=== PATIENT | female | born 1995 | race Caucasian/White ===

== ENCOUNTER 2017-11-17 10:42 | Inpatient (IN) | payer OTHER ==
[~2017-11-17] VITALS: Ht 157.5 cm; Wt 69.6 kg
[2017-11-17 10:56] VITALS: BP 136/91
--- NOTE | 2017-11-17 11:01 | NUR ---
AFTER PROVIDING URINE SAMPLE, PT AMBULATES TO BED 11, REPORT GIVEN TO RADHA CISNEROS
--- NOTE | 2017-11-17 11:05 | NUR ---
HEAD ACHE, LT FACE NUMBNESS X 4 DAYS, LOSS OF WORDS. DENIES N/V/D; SKIN IS PINK/WARM/DRY; AWAKE, ALERT. LUNGS CLEAR BL; HR EVEN AND REGULAR. PAIN OF 9/10 AT THIS TIME; VSS; PATIENT POSITIONED FOR COMFORT; HOB ELEVATED; BEDRAILS UP X2; BED DOWN. ER MD MADE AWARE OF PT STATUS.PT'S SISTER AT BEDSIDE.
[2017-11-17] MEDS ORDERED: MORPHINE SULFATE 4 MG/ML SYR IVP ONE (11:15)
[2017-11-17] MEDS ORDERED: PROCHLORPERAZINE 10 MG/2 ML VIAL IVP ONE (11:15)
[2017-11-17 11:27] LABS: BASOPHILS # (AUTO) 0.1 K/uL (0.00-0.22); BASOPHILS % (AUTO) 0.8 % (0.0-2.0); EOSINOPHILS # (AUTO) 0.2 K/uL (0-0.4); HEMOGLOBIN 12.3 g/dL (12.0-16.0); LYMPHOCYTES # (AUTO) 2.8 K/uL (2.5-16.5); LYMPHOCYTES % (AUTO) 31.4 % (20.5-51.1); MEAN CORPUSCULAR HEMOGLOBIN 30 pg (27-31); MEAN CORPUSCULAR HGB CONC 33 g/dL (33-37); MEAN CORPUSCULAR VOLUME 90.3 fL (80-94); MONOCYTES # (AUTO) 0.9 K/uL (0.8-1.0); MONOCYTES % (AUTO) 9.6 % (1.7-9.3); NEUTROPHILS % (AUTO) 56.2 % (42.2-75.2); PLATELET COUNT (AUTO) 268 K/uL (140-450); WHITE BLOOD COUNT (AUTO) 8.9 K/uL (4.8-10.8)
[2017-11-17 11:38] LABS: ANION GAP 0.6 (8-16); CARBON DIOXIDE 26.9 mmol/L (21-32); CREATININE 0.7 mg/dL (0.6-1.3); POTASSIUM 3.5 mmol/L (3.5-5.1); TOTAL BILIRUBIN 1.3 mg/dL (0.0-1.0)
--- NOTE | 2017-11-17 11:58 | NUR ---
PT RETURNED FROM CT
[2017-11-17] MEDS ORDERED: LORazepam 2 MG/ML VIAL IVP PRN (13:00)
[2017-11-17] MEDS ORDERED: ONDANSETRON 4 MG/2 ML VIAL IVP PRN (13:00)
[2017-11-17] MEDS ORDERED: HYDROcodone/APAP 5/325 MG 1 TAB TAB PO PRN ×2 (13:00)
[2017-11-17] MEDS ORDERED: ACETAMINOPHEN 325 MG TAB PO PRN (13:00)
[2017-11-17] MEDS ORDERED: NACL 0.9% 1,000 ML IV ONE (14:10)
[2017-11-17 14:34] LABS: APPEARANCE,URINE CLEAR (CLEAR); BILIRUBIN,URINE NEGATIVE (NEGATIVE); BLOOD, URINE NEGATIVE (NEGATIVE); COLOR,URINE YELLOW (YELLOW); LEUKOCYTE ESTERASE ,URINE TRACE (NEGATIVE); NITRITE, URINE NEGATIVE (NEGATIVE); UGLUCOSE NEGATIVE (NEGATIVE)
--- NOTE | 2017-11-17 14:42 | NUR ---
PER DR. UDTTA, DO NOT INSERT FLEY CATH AND GIVE 0.9 NS AT 50 MLS/HR YET, WAIT FOR LAB REPORT, THEN CALL HIM.WILL CARRY OUT.
[2017-11-17 14:43] LABS: ANION GAP 13.3 (8-16); CARBON DIOXIDE 25.4 mmol/L (21-32); CREATININE 0.7 mg/dL (0.6-1.3); POTASSIUM 3.7 mmol/L (3.5-5.1)
[2017-11-17 14:46] LABS: BARBITURATE, URINE NEG. ng/ml (NEG <=200); BENZODIAZEPINE, URINE NEG. ng/mL (NEG <=200); CANNABINOID, URINE NEG. ng/mL (NEG <=50); COCAINE, URINE NEG. ng/mL (NEG <=300); OPIATE, URINE NEG. ng/mL (NEG <=2000); PHENCYCLIDINE SCREEN,URINE NEG. ng/mL (NEG <=25)
[2017-11-17 14:55] LABS: THYROID STIMULATING HORMONE 3.41 uIU/mL (0.34-3.74)
[2017-11-17 15:02] LABS: RBC,URINE 0-5 (RARE) /HPF (0-5); WBC,URINE 0-5 (RARE) /HPF (0-5)
[2017-11-17 15:40] VITALS: BP 127/69
--- NOTE | 2017-11-17 15:40 | NUR ---
ADMITTED FROM ED THIS 22 YR OLD [place] FEMALE PER ACE WITH CC OF HEADACHES AND NUMBNESS OF LEFT SIDE OF FACE WHICH STARTED 4 DAYS AGO. DENIES ANY DISCOMFORTS AT THIS TIME. HL ON LEFT HAND. SITE CLEAR. CHEERFUL AND COOPERATIVE. DENIES ANY DISCOMFORTS AT THIS TIME. SISTER AT BEDSIDE.
--- NOTE | 2017-11-17 15:45 | NUR ---
TRANSFERRED PT TO ICU BED 4, REPORT GIVEN TO MEGAN. PT AWAKE, ALERT, AND ORIENTED. ON ROOM AIR, NO S/S OF RESPIRATORY DISTRESS NOTED. PT'S SISTER WITH PT.
[2017-11-17 17:00] VITALS: BP 119/68
[2017-11-17 17:07] LABS: ANION GAP 13.3 (8-16); CARBON DIOXIDE 25.5 mmol/L (21-32); POTASSIUM 3.8 mmol/L (3.5-5.1)
[2017-11-17 17:08] LABS: CREATININE 0.6 mg/dL (0.6-1.3)
--- NOTE | 2017-11-17 17:45 | NUR ---
DR. DUTTA NOTIFIED OF BMP RESULTS. AWARE THAT UA SODIUM AND POTASSIUM RESULTS NOT AVAILABLE YET.
--- NOTE | 2017-11-17 18:30 | NUR ---
USED THE BEDSIDE COMMODE. GAIT STEADY. URINE PALE YELLOW. TOLERATED ACTIVITY WELL.
--- NOTE | 2017-11-17 18:45 | NUR ---
MOTHER AT BEDSIDE. UPDATED ON PT'S CONDITION. QUESTIONS ANSWERED.
[2017-11-17 19:02] LABS: CARBON DIOXIDE 27.6 mmol/L (21-32); CREATININE 0.7 mg/dL (0.6-1.3); POTASSIUM 3.6 mmol/L (3.5-5.1)
--- NOTE | 2017-11-17 19:16 | NUR ---
REPORT GIVEN TO PERNELL GARCIA.
--- NOTE | 2017-11-17 19:20 | NUR ---
RECEIVED REPORT FROM DAY NURSE, NO ACUTE DISTRESS NOTED. WILL CONTINUE TO OBSERVE.
[2017-11-17] MEDS ORDERED: IBUP-2218 PO (19:52)
--- NOTE | 2017-11-17 19:54 | NUR ---
NOTIFIED DR. AKBAR OF PAST LAB RESULTS NA LEVELS. MD STATED OK TO D/C UPCOMING DRAWS, KEEP CMP DRAW TOMORROW IN AM. INFORMED MD OF EKG CHANGE OF INVERTED P WAVES, 12 LEAD EKG ORDERED. PT DENIES PAIN @ THIS TIME AND IS ASYMPTOMATIC, WILL CONTINUE TO OBSERVE.
--- NOTE | 2017-11-17 19:57 | NUR ---
PT AWAKE ALERT ORIENTED X 4 FOLLOWING COMMANDS SITTING UP IN BED, +3 BRISK PERRLA, STRONG UPPER AND LOWER EXTREMITIES. PT DENIES SEIZURES, MUSCLES TWITCHING, NUMBNESS. SINUS RHYTHM 60S NOTED WITH INVERTED P WAVES @ TIMES, NO EDEMA NOTED. LUNGS CLEAR TO AUSCULTATION. ABD SOFT NON DISTENDED + ACTIVE BOWEL SOUNDS, PT VOIDING IN BEDSIDE COMMODE, 24 HOUR URINE COLLECTION @ BEDSIDE. SKIN INTACT, PERIPHERAL IV TO L FOREARM HEPLOCK. PT DENIES PAIN @ THIS TIME. NO OTHER S/S OF ACUTE DISTRESS NOTED. WILL CONTINUE TO OBSERVE.
--- NOTE | 2017-11-17 20:05 | NUR ---
DR VIRGEN @ BEDSIDE.
--- NOTE | 2017-11-17 20:13 | NUR ---
NOTIFIED DR VIRGEN OF PT INVERTED P WAVES, PT ASYMPTOMATIC, 12 LEAD EKG ORDERED, D/C PENDING.
[2017-11-17 21:04] VITALS: BP 122/70
--- NOTE | 2017-11-17 22:10 | NUR ---
PAGED DR AKBAR INFORMED MD OF NSR EKG, PT ASYMPTOMATIC. AWARE, OK TO DISCHARGE. WILL CARRY OUT ORDERS.
--- NOTE | 2017-11-17 22:25 | NUR ---
DISCHARGE INSTRUCTIONS GIVEN TO PT, MOTHER @ BEDSIDE. PT VERBALIZED UNDERSTANDING, ALL BELONGINGS RETAINED BY PATIENT. PERIPHERAL IV D/C'D HEMOSTASIS ACHIEVED, NO OTHER S/S OF ACUTE DISTRESS NOTED, HOSPITAL BAND RETAINED. WILL WHEEL OUT VIA WHEELCHAIR, FAMILY TO TRANSPORT HOME.
--- NOTE | 2017-11-18 07:45 | NUR ---
RETRO ER REPORT, H&P AND CONSULT FAXED TO [facility] [phone] PHONE MEHDI [phone].
[2017-11-19 07:18] LABS: OSMOLALITY,URINE 81 mOsmol/kg (.)
== END 2017-11-17 22:25 | disposition home or self-care (01) | DRG 54 ==
LOC: MED 10:42 → MIC 12:58
PROVIDERS: ADMIT Hospitalist; ATTEND Hospitalist
DX: G43.909 Migraine, unspecified, not intractable, without status migrainosus (principal); E87.1 Hypo-osmolality and hyponatremia; T39.315A Adverse effect of propionic acid derivatives, initial encounter; R63.1 Polydipsia; Z88.1 Allergy status to other antibiotic agents; Z82.49 Family history of ischemic heart disease and other diseases of the circulatory system; Y92.89 Other specified places as the place of occurrence of the external cause
CPT/HCPCS: 36415; 70450; 80048; 80053; 80305; 81001; 83930; 83935; 84133; 84300; 84443; 85025; 87081; 93005; 96374; 96375; 99285; J0780; J2270

== ENCOUNTER 2020-10-30 07:44 | Emergency (ER) | payer OTHER ==
[~2020-10-30] VITALS: Ht 160 cm; Wt 64.4 kg
[2020-10-30 07:45] VITALS: BP 120/78
[2020-10-30] MEDS ORDERED: KETOROLAC 30 MG/ML VIAL IM ONE (08:05)
[2020-10-30 08:27] LABS: BASOPHILS # (AUTO) 0.1 K/uL (0.00-0.22); BASOPHILS % (AUTO) 1.1 % (0.0-2.0); EOSINOPHILS # (AUTO) 0.1 K/uL (0-0.4); EOSINOPHILS % (AUTO) 1.6 % (0.0-4.0); HEMATOCRIT 36.3 % (36-48); HEMOGLOBIN 12.1 g/dL (12.0-16.0); LYMPHOCYTES # (AUTO) 1.8 K/uL (2.5-16.5); LYMPHOCYTES % (AUTO) 29.1 % (20.5-51.1); MEAN CORPUSCULAR HEMOGLOBIN 31 pg (27-31); MEAN CORPUSCULAR HGB CONC 33 g/dL (33-37); MEAN CORPUSCULAR VOLUME 93.3 fL (80-94); MONOCYTES # (AUTO) 0.5 K/uL (0.8-1.0); MONOCYTES % (AUTO) 8.3 % (1.7-9.3); NEUTROPHILS # (AUTO) 3.8 K/uL (1.8-7.7); NEUTROPHILS % (AUTO) 59.9 % (42.2-75.2); PLATELET COUNT (AUTO) 242 K/uL (140-450); RED BLOOD CELL COUNT(AUTO) 3.89 MIL/uL (4.20-5.40); RED CELL DISTRIBUTION WIDTH 12.6 % (11.6-13.7); WHITE BLOOD COUNT (AUTO) 6.3 K/uL (4.8-10.8)
[2020-10-30 08:50] LABS: ANION GAP 10.8 (8-16); CARBON DIOXIDE 26.8 mmol/L (21-32); CREATININE 0.7 mg/dL (0.6-1.3); POTASSIUM 3.6 mmol/L (3.5-5.1)
[2020-10-30] MEDS ORDERED: HYDROcodone/APAP 5/325 MG 1 TAB TAB PO ONE (11:05)
[2020-10-30] MEDS ORDERED: NAPR-1704 PO (11:24)
[2020-10-30] MEDS ORDERED: ACET-8386 PO (11:24)
[2020-10-30 12:31] VITALS: BP 122/73
[2020-10-31] MEDS ORDERED: ACET-8386 PO (14:44)
== END 2020-10-30 12:32 | disposition home or self-care (01) ==
LOC: MED 07:44
DX: N63.0 Unspecified lump in unspecified breast (principal); M54.9 Dorsalgia, unspecified; Z79.899 Other long term (current) drug therapy; Z88.1 Allergy status to other antibiotic agents
CPT/HCPCS: 36415; 71045; 72192; 72220; 76641; 80048; 81002; 81025; 85025; 96372; 99285; J1885

== ENCOUNTER 2022-05-11 10:36 | Emergency (ER) | payer OTHER ==
[~2022-05-11] VITALS: Ht 157.5 cm; Wt 68.9 kg
[~2022-05-11 10:36] MED LIST: ACET-8386 PO; NAPR-1704 PO
[2022-05-11 11:04] VITALS: BP 104/61
--- NOTE | 2022-05-11 11:10 | NUR ---
Osbaldo kurtz in ED - 05/11/22 at 1114 by MED1 PT AMB TO BED 2.
--- NOTE | 2022-05-11 11:13 | NUR ---
Patient ambulated to bed 1.
--- NOTE | 2022-05-11 11:34 | NUR ---
26 y/o female bib self with c/o pelvic and low back pain x 3 days. Patient has a headache and nausea. Patient donated blood yesterday. Patient has been taking Tylenol with little relief. Denies any heavy lifting, trauma or injury. Denies any dysuria or foul urine. LMP 04/29/22. Medical History: Denies NKDA
--- NOTE | 2022-05-11 12:04 | NUR ---
Dr. Ortiz evaluating patient at bedside.
[2022-05-11] MEDS ORDERED: IBUPROFEN 400 MG TAB PO ONE (12:25)
[2022-05-11] MEDS ORDERED: NAPR-1704 PO (14:20)
[2022-05-11 14:35] VITALS: BP 111/68
--- NOTE | 2022-05-11 14:35 | NUR ---
Patient discharged with v/s stable. Written and verbal after care instructions given. Patient alert, oriented and verbalized understanding of instructions. Ambulatory with steady gait. All questions addressed prior to discharge. ID band removed. Patient advised to follow up with PMD. Rx of Naproxen given. Opportunity to ask questions provided and answered.
--- NOTE | 2022-05-11 15:39 | NUR ---
Chart checked and completed. The patient's care was reviewed and supervised by Cherelle Elmore RN.
== END 2022-05-11 14:35 | disposition home or self-care (01) ==
LOC: MED 10:36
DX: R10.10 Upper abdominal pain, unspecified (principal)
CPT/HCPCS: 76830; 81002; 81025; 87491; 99284

== ENCOUNTER 2024-01-07 21:09 | Emergency (ER) | payer OTHER ==
[~2024-01-07] VITALS: Ht 160 cm; Wt 69.9 kg
[~2024-01-07 21:09] MED LIST changes: -ACET-8386 PO; +ACET-8905 PO
[2024-01-07 21:27] VITALS: BP 130/82; PULSE 83; RESP 16; TEMP 98.4; O2SAT 100
[2024-01-07 22:08] LABS: BASOPHILS % (AUTO) 0.8 % (0.0-2.0); EOSINOPHILS # (AUTO) 0.2 K/uL (0-0.4); EOSINOPHILS % (AUTO) 4.1 % (0.0-4.0); HEMATOCRIT 36.2 % (36-48); LYMPHOCYTES # (AUTO) 1.9 K/uL (2.5-16.5); LYMPHOCYTES % (AUTO) 34.6 % (20.5-51.1); MEAN CORPUSCULAR HEMOGLOBIN 30 pg (27-31); MEAN CORPUSCULAR HGB CONC 33 g/dL (33-37); MEAN CORPUSCULAR VOLUME 91.1 fL (80-94); MONOCYTES # (AUTO) 0.7 K/uL (0.8-1.0); NEUTROPHILS # (AUTO) 2.6 K/uL (1.8-7.7); NEUTROPHILS % (AUTO) 47.5 % (42.2-75.2); PLATELET COUNT (AUTO) 256 K/uL (140-450); RED BLOOD CELL COUNT(AUTO) 3.98 MIL/uL (4.20-5.40); RED CELL DISTRIBUTION WIDTH 12.9 % (11.6-13.7); WHITE BLOOD COUNT (AUTO) 5.6 K/uL (4.8-10.8)
[2024-01-07 22:22] LABS: APPEARANCE,URINE CLEAR (CLEAR); BILIRUBIN,URINE NEGATIVE (NEGATIVE); BLOOD, URINE NEGATIVE (NEGATIVE); COLOR,URINE YELLOW (YELLOW); LEUKOCYTE ESTERASE ,URINE NEGATIVE (NEGATIVE); NITRITE, URINE NEGATIVE (NEGATIVE); PH,URINE 6.5 (5.0-9.0); PROTEIN,URINE NEGATIVE (NEGATIVE); UGLUCOSE NEGATIVE (NEGATIVE); UROBILINOGEN,URINE 0.2 EU/dL (0.2 - 1)
[2024-01-07 22:37] LABS: CALCIUM 8.6 mg/dL (8.5-10.1); CARBON DIOXIDE 24.5 mmol/L (21-32); CREATININE 0.9 mg/dL (0.6-1.3); POTASSIUM 3.5 mmol/L (3.5-5.1)
[2024-01-07] MEDS: KETOROLAC 30 MG/ML VIAL IVP ONE (22:38)
[2024-01-07 22:45] LABS: ALBUMIN 3.7 g/dL (3.4-5.0); BILIRUBIN,DIRECT 0.2 mg/dL (0.0-0.3); TOTAL BILIRUBIN 0.7 mg/dL (0.0-1.0); TOTAL PROTEIN, SERUM 7.7 g/dL (6.4-8.2)
[2024-01-07 23:13] VITALS: BP 130/82; PULSE 83; RESP 16; TEMP 98.4; O2SAT 100
== END 2024-01-07 23:13 | disposition home or self-care (01) ==
LOC: MED 21:09
DX: K29.70 Gastritis, unspecified, without bleeding (principal); L73.2 Hidradenitis suppurativa; Z79.1 Long term (current) use of non-steroidal anti-inflammatories (NSAID); Z88.8 Allergy status to other drugs, medicaments and biological substances
CPT/HCPCS: 36415; 80048; 80076; 81003; 81025; 83690; 85025; 96374; 99284; J1885